=== PATIENT | male | born 1980 | race Caucasian/White ===

== ENCOUNTER 2020-08-30 16:44 | Emergency (ER) | payer BC, SELFPAY ==
--- NOTE | ~2020-08-30 | XR_ITS ---
EXAMINATION: XR chest 1V portable DATE: 08/30/2020 17:19 INDICATION: COVID-19 pneumonia. Shortness of breath. TECHNIQUE: A single frontal view of the chest was obtained. COMPARISON: None. FINDINGS: There are patchy airspace opacities in all lung zones bilaterally. No pleural effusion or p neumothorax. The heart size is normal. IMPRESSION: 1. Diffuse lung disease, consistent with pneumonia. Reviewed, dictated and finalized at location A.
[2020-08-30 16:56] VITALS: BP 121/93; PULSE 97; RESP 18; TEMP 36.3; O2SAT 100
[2020-08-30 18:20] LABS: Basophils Percent Auto 0.2 % (0.2-1.2); Hematocrit 44.8 % (42.0-52.0); Hemoglobin 15.7 g/dL (14.0-18.0); Immature Granulocyte Absolute 0.03 K/mm3 (0.00-0.031); Immature Granulocyte Percent A 0.6 % (0-0.5); Lymphocytes Absolute Auto 0.59 K/mm3 (0.9-3.2); Lymphocytes Percent Auto 12.3 % (18.3-44.2); Mean Corpuscular Hemoglobin 28.9 pg (26-34); Mean Corpuscular Volume 82.4 fl (80-100); Monocytes Absolute Auto 0.4 K/mm3 (0.1-0.6); Monocytes Percent Auto 7.3 % (2.6-8.5); Neutrophils Absolute Auto 3.8 K/mm3 (1.3-6.7); Neutrophils Percent Auto 79.6 % (45.5-73.1); Platelet Count Result 144 k/mm3 (150-375); Red Blood Count 5.44 M/mm3 (4.6-6.20); Red Cell Distribution Width 12.7 % (11.5-14.5); White Blood Count 4.8 K/mm3 (4.5-10.0)
[2020-08-30] MEDS: KETOROLAC 30 MG/ML VIAL (*BKC) IV PUSH (18:20)
[2020-08-30] MEDS: SODIUM CHLORIDE 0.9% IV 1,000 ML 999 ML IV CONT (18:28)
[2020-08-30 18:34] LABS: Alanine Aminotransferase 49 U/L (4-50); Albumin Level 4.1 g/dL (3.5-5.1); Alkaline Phosphatase 73 U/L (38-126); Anion Gap 6 mmol/L (8-16); Aspartate Amino Transferase 43 U/L (17-59); Bilirubin,Total 0.7 mg/dL (0.2-1.3); Blood Urea Nitrogen 10 mg/dL (9-20); Calcium 8.2 mg/dL (8.4-10.2); Carbon Dioxide 29 mmol/L (22-30); Chloride 93 mmol/L (98-107); Estimated CRCL calculation 115 ml/min; Estimated Glomerular Filt Rate > 60; Glucose 109 mg/dL (75-110); Potassium 4.1 mmol/L (3.4-5.0); Sodium 128 mmol/L (137-145)
--- NOTE | 2020-08-30 18:59 | ED.GENADULT ---
HPI - General Adult General Chief complaint: Weakness Stated complaint: COVID +, weakness Time Seen by Provider: 08/30/20 17:17 History of Present Illness HPI narrative: Patient is a 40-year-old male who presents ER with issues related to COVID-19 infection. Patient was diagnosed 2 days ago and began having his symptoms about 5 days ago. He is having fever/body aches/chills. He has some runny nose. He has lost taste and smell. No chest pain or chest pressure. Reports he feels so bad need to come here to be seen. He has mild cough that is nonproductive. He has exertional fatigue but no overt shortness of breath. He has not been on any medications. He does have history of asthma. Related Data Home Medications Medication Instructions Recorded Confirmed fluoxetine 10 mg PO BID 08/30/20 lisinopril 2.5 mg PO DAILY 08/30/20 Allergies Allergy/AdvReac Type Severity Reaction Status Date / Time No Known Allergies Allergy Verified 08/30/20 16:55 Review of Systems Review of Systems: All systems reviewed & are unremarkable except as noted in HPI and below Constitutional: Constitutional: Reports chills, Reports fatigue, Reports fever(s) and Reports weakness ENT: Reports nasal congestion and Denies sore throat Cardiovascular: Cardiovascular: Denies chest pain, Denies rapid heart rate and Denies radiating jaw, neck or arm pain Respiratory: Respiratory: Reports cough, Denies dyspnea and Denies wheezing Gastrointestinal: Gastrointestinal: Denies abdominal pain, Denies diarrhea, Denies nausea and Denies vomiting Musculoskeletal: Musculoskeletal: Reports myalgias PMFSH Past Medical History Medical History (Updated 08/30/20 @ 19:09 by Frank Becker MD) Asthma Surgical History Surgical History (Updated 08/30/20 @ 19:01 by Frank Becker MD) No pertinent past surgical history Social History Social History (Updated 08/30/20 @ 19:01 by Frank Becker MD) Smoking status: Never smoker Gender identity (if verbalized by the patient): Male Exam Narrative: Exam Narrative: GENERAL: Uncomfortable-appearing, well-nourished, and in no acute distress. HEAD: Normocephalic, atraumatic. CHEST: Clear to auscultation. No respiratory distress. HEART: Regular rate and rhythm. Normal peripheral pulses. ABDOMEN: Soft, nontender, nondistended. EXTREMITIES: Normal range of motion. No edema. SKIN: Warm, dry, no rash. NEURO: Alert and oriented x3. PSYCH: Normal mood and affect. Course Course Emergency Course: Patient hydrated and given Toradol for body aches. Discussed results with patient and his family. Patient reports he is had at least 20 bottles of water over the last 24 hours which likely accounts for his hyponatremia. Discussed strict return precautions. Recommend him obtaining a pulse oximeter for home use. Also will prescribe albuterol. Discussed he should contact his PCP to discuss whether he would be a good candidate for monoclonal antibody therapy. Vital Signs Vital signs: Vital Signs Temperature 97.3 F L 08/30/20 16:56 Pulse Rate 97 08/30/20 16:56 Respiratory Rate 18 08/30/20 16:56 Blood Pressure 121/93 H 08/30/20 16:56 Pulse Oximetry 100 08/30/20 16:56 Temperature 97.3 F L 08/30/20 16:56 Pulse Rate 97 08/30/20 16:56 Respiratory Rate 18 08/30/20 16:56 Blood Pressure 121/93 H 08/30/20 16:56 Pulse Oximetry 100 08/30/20 16:56 Medical Decision Making Vital Signs Vital Signs: Vital Signs Temperature 97.3 F L 08/30/20 16:56 Pulse Rate 97 08/30/20 16:56 Respiratory Rate 18 08/30/20 16:56 Blood Pressure 121/93 H 08/30/20 16:56 Pulse Oximetry 100 08/30/20 16:56 Temperature 97.3 F L 08/30/20 16:56 Pulse Rate 97 08/30/20 16:56 Respiratory Rate 18 08/30/20 16:56 Blood Pressure 121/93 H 08/30/20 16:56 Pulse Oximetry 100 08/30/20 16:56 Lab Data Result diagrams: 08/30/20 17:05 08/30/20 17:05 Labs
[2020-08-30 19:19] VITALS: BP 122/78; PULSE 87; RESP 18; O2SAT 99
== END 2020-08-30 19:20 | disposition home or self-care (01) ==
PROVIDERS: Emergency Provider Emergency Medicine; PCP Family Medicine
DX: U07.1 COVID-19 (principal); J12.82 Pneumonia due to coronavirus disease 2019; J45.909 Unspecified asthma, uncomplicated
CPT/HCPCS: 36415; 71045; 80053; 85025; 96374; 99284; J1885; J7030

== ENCOUNTER 2023-12-27 00:56 | Emergency (ER) | payer OTHER, BC, SELFPAY ==
[2023-12-27] VITALS (9 sets, daily range): BP systolic 105–146; BP diastolic 66–85; PULSE 54–103; RESP 12–20; TEMP 36.9; O2SAT 94–98
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
[2023-12-27 01:26] LABS: Estimated CRCL calculation 96 ml/min; Estimated Glomerular Filt Rate > 60
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
[2023-12-27 01:42] LABS: Basophils Percent Auto 0.2 % (0.2-1.2); Eosinophils Absolute Auto 0.1 K/mm3 (0-0.3); Eosinophils Percent Auto 1.2 % (0-4.4); Hematocrit 40.5 % (42.0-52.0); Hemoglobin 14.1 g/dL (14.0-18.0); Immature Granulocyte Absolute 0.02 K/mm3 (0.00-0.031); Immature Granulocyte Percent A 0.2 % (0-0.5); Lymphocytes Absolute Auto 2.94 K/mm3 (0.9-3.2); Lymphocytes Percent Auto 34.3 % (18.3-44.2); Mean Corpuscular HGB Conc 34.8 g/dl (32-36); Mean Corpuscular Volume 83.2 fl (80-100); Mean Platelet Volume 10.4 fl (7.4-10.4); Monocytes Absolute Auto 0.6 K/mm3 (0.1-0.6); Monocytes Percent Auto 7.2 % (2.6-8.5); Neutrophils Absolute Auto 4.9 K/mm3 (1.3-6.7); Neutrophils Percent Auto 56.9 % (45.5-73.1); Platelet Count Result 250 k/mm3 (150-375); Red Blood Count 4.87 M/mm3 (4.6-6.20); Red Cell Distribution Width 13.7 % (11.5-14.5); White Blood Count 8.6 K/mm3 (4.5-10.0)
[2023-12-27 01:50] LABS: Prothrombin Time 13.2 Seconds (11.1-14.7)
[2023-12-27 01:51] LABS: Partial Thromboplastin Time 27.3 Seconds (22.3-36.8)
[2023-12-27 01:58] LABS: Alanine Aminotransferase 27 U/L (6-50); Albumin Level 3.8 g/dL (3.5-5.1); Alkaline Phosphatase 78 U/L (38-126); Anion Gap 10 mmol/L (4-12); Aspartate Amino Transferase 28 U/L (17-59); Bilirubin,Total 0.4 mg/dL (0.2-1.3); Blood Urea Nitrogen 19 mg/dL (9-20); Calcium 8.5 mg/dL (8.4-10.2); Carbon Dioxide 21 mmol/L (22-30); Chloride 103 mmol/L (98-107); Estimated CRCL calculation 106 ml/min; Estimated Glomerular Filt Rate > 60; Glucose 86 mg/dL (65-110); Potassium 3.7 mmol/L (3.4-5.0); Sodium 134 mmol/L (137-145)
[2023-12-27 02:42] LABS: Ethanol 77 mg/dL (<10)
--- NOTE | 2023-12-27 02:50 | ECG_ITS ---
Test Date: 2023-12-27 03:05:44 Measurements Intervals [place] Rate: 97 P: 29 TX: 159 QRS: -35 QRSD: 96 T: 9 QT: 341 QTc: 434 Interpretive Statements SINUS RHYTHM LEFT AXIS DEVIATION DELAYED PRECORDIAL R/S TRANSITION LOW QRS VOLTAGE IN PRECORDIAL LEADS BASELINE ARTIFACT- I, II, III, AVR, AVL, AVF, V2, V4-V6 BORDERLINE ECG No previous ECG available for comparison Electronically Signed On 12-27-2023 07:47:08 CDT by Mihai Potts D.O.
[2023-12-27] MEDS: SODIUM CHLORIDE 0.9% IV 1,000 ML 999 ML IV CONT (02:54)
--- NOTE | 2023-12-27 03:10 | PC.NURSE ---
pt starting to urinate and defecate himself and bed. pt denies knowing when he is losing bowel and bladder. this rn gave patient bed bath, linen change, and gown change. JOHN Marie made aware.
[2023-12-27 03:12] LABS: Amphetamine Screen Urine Positive (Negative); Barbiturate Screen Urine Negative (Negative); Benzodiazepines Screen Urine Negative (Negative); Cannabinoid Screen Urine Negative (Negative); Cocaine Screen Urine Negative (Negative); Methadone Screen Urine Negative (Negative); Opiate Screen Urine Negative (Negative); Phencyclidine Screen Urine Negative (Negative)
[2023-12-27 03:13] LABS: Appearance Urine Clear (Clear); Bacteria Urine None Seen /hpf; Bilirubin Urine Negative (Negative); Blood Urine 1+ (Negative); Color Urine Yellow (Yellow); Glucose Urine UA Negative (Negative); Ketones Urine Negative (Negative); Leukocyte Esterase Ur Negative LEU/UL (Negative); Need Manual Microscopic Reviewed; Nitrate Urine Negative (Negative); Non Pathogenic Casts 0-2; Protein Urine Negative (Negative); RBC Urine 0-2 /hpf (0-2); Specific Grav Ur 1.015 (1.001-1.035); Squamous Epithelial Cell Urine None Seen /hpf (Few); Urobilinogen Urine 0.2 mg/dL (<2.0); WBC Urine 0-5 /hpf (0-3); pH Urine 5.5 (5.0-9.0)
[2023-12-27 03:15] LABS: Add Urine Microscopic? YES
[2023-12-27 03:40] LABS: Troponin I < 0.012 ng/mL (0.000-0.034)
[2023-12-27] MEDS: IBUPROFEN IV 400 MG in SODIUM CHLORIDE 0.9% IV 100 ML 208 MG IVPB (04:04)
== END 2023-12-27 09:02 | disposition short-term general hospital (02) ==
PROVIDERS: Emergency Provider Physician Assistant
DX: R15.9 Full incontinence of feces (principal); M54.50 Low back pain, unspecified; M51.36 Other intervertebral disc degeneration, lumbar region; V89.2XXA Person injured in unspecified motor-vehicle accident, traffic, initial encounter; W22.10XA Striking against or struck by unspecified automobile airbag, initial encounter; J45.909 Unspecified asthma, uncomplicated; F84.0 Autistic disorder
CPT/HCPCS: 36415; 70450; 71260; 72125; 72131; 74177; 80053; 80307; 81001; 84484; 85025; 85610; 85730; 93005; 96361; 96365; 99285; J1741; J7030; L0140; Q9967